=== PATIENT | male | born 1970 | race Caucasian/White ===

== ENCOUNTER 2019-08-13 19:36 | Emergency (ER) | payer OTHER, SELFPAY ==
[2019-08-13 19:49] VITALS: BP 150/90; PULSE 75; RESP 16; TEMP 36.5; O2SAT 99
--- NOTE | 2019-08-13 19:50 | ED.URI ---
HPI - URI/Sore Throat General Chief Complaint: Upper Respiratory Infection Stated Complaint: Congestion Source: patient, family and RN notes reviewed Mode of arrival: ambulatory Limitations: no limitations History of Present Illness HPI Narrative: 48-year-old male accompanied by family presents to [facility] with 2 week history of sinus congestion drainage, facial pressure. Patient states that he has taken Sudafed, Caitlyn, and has used Afrin nasal spray with no improvement in his symptoms. Patient states that he did have a fever initially and has felt feverish intermittently. Patient admits to previous history of sinus infections. Patient denies any acute cough, wheezing, or shortness of breath, respirations even and non labored with SAO2 99% on room air. MD elicited complaint: cough and nasal congestion Pertinent past history: sinusitis Onset (ago): week(s) (2) Consistency: constant Severity: moderate Pain scale (0-10): 5 Description of mucous: yellow Able to tolerate fluids by mouth: Yes Exacerbating factors: changing head position and leaning forward Relieving factors: nothing Associated symptoms: fever, chills, headache, rhinorrhea, nasal congestion, cough and other (sinus pain) Treatments prior to arrival: cold medicine and other (sudafed, letty seltzer cold, afrin nasal spray) Related Data Allergies Allergy/AdvReac Type Severity Reaction Status Date / Time No Known Allergies Allergy Verified 08/13/19 19:55 Review of Systems Review of Systems: Narrative: CONSTITUTIONAL: reports has felt feverish,some chills, or sweats. EYES: Denies visual changes, redness, or discharge. ENT: positive rhinorrhea, congestion, facial pressure,no sore throat, or otalgia. CARDIOVASCULAR: Denies chest pain, palpitations, or edema. RESPIRATORY:occasional cough denies dyspnea. GASTROINTESTINAL: Denies abdominal pain, nausea, vomiting, or diarrhea. GENITOURINARY: Denies dysuria or hematuria. SKIN: Denies rash or itching. MUSCULOSKELETAL: Denies back pain, joint pain, or myalgia. NEUROLOGIC: Denies headache, numbness, or weakness. PSYCHIATRIC: Denies anxiety or depression. All systems reviewed & are unremarkable except as noted in HPI and below PMFSH Past Medical History Medical History (Updated 08/17/19 @ 11:56 by Arianna Veras NP) Sinus infection Social History Social History (Updated 08/17/19 @ 11:54 by Arianna Veras NP) Smoking status: Current every day smoker Living arrangements: with family Gender identity (if verbalized by the patient): Male Comments At time of signature, agree with nursing past medical, social history. There is no relevant family history pertinent to the presenting complaint Exam Narrative: Exam Narrative: GENERAL: Well-appearing, well-nourished, and in no acute distress. HEAD: Normocephalic, atraumatic. EYES: PERRLA and EOMI. ENT: Nares red and swollen with yellow tinged rhinorrhea no epistaxis. Mucous membranes moist.facial pressure and frontal sinus pressure, Tm;s normal with dull light reflex, throat light red with post nasal drainage noted, no tonsil enlargement NECK: Supple.no lymphadenopathy CHEST: Clear to auscultation. No respiratory distress.SAO2 99% on room air HEART: Regular rate and rhythm. No murmur heard. Normal peripheral pulses. ABDOMEN: Soft, nontender, nondistended, normal active bowel sounds. EXTREMITIES: Normal range of motion. No edema. SKIN: Warm, dry, no rash. NEURO: No focal deficits. Alert and oriented x3. Course Vital Signs Vital signs: Vital Signs Temperature 36.5 C 08/13/19 19:49 Pulse Rate 75 08/13/19 19:49 Respiratory Rate 16 08/13/19 19:49 Blood Pressure 150/90 H 08/13/19 19:49 Pulse Oximetry 99 08/13/19 19:49 Temperature 36.5 C 08/13/19 19:49 Pulse Rate 75 08/13/19 19:49 Respiratory Rate 16 08/13/19 19:49 Blood Pressure 150/90 H 08/13/19 19:49 Pulse Oximetry 99 08/13/19 19:49 MDM - URI/Sore Throat Differential Diagn
== END 2019-08-13 20:07 | disposition home or self-care (01) ==
PROVIDERS: Emergency Provider Registered Nurse
DX: J32.9 Chronic sinusitis, unspecified (principal); F17.200 Nicotine dependence, unspecified, uncomplicated
CPT/HCPCS: 99203; G0463